=== PATIENT | female | born 1975 | race Caucasian/White ===

== ENCOUNTER → 2025-01-11 11:12 | Outpatient (REF) | payer OTHER, SELFPAY | LOC: WDC 11:12 | PROVIDERS: ATTENDING PHYSICIAN Obstetrics & Gynecology; FAMILY PHYSICIAN Family Medicine | DX: Z12.31 Encounter for screening mammogram for malignant neoplasm of breast (principal) | CPT/HCPCS: 77063; 77067 ==

== ENCOUNTER 2025-07-06 06:33 | Day surgery (SDC) | payer OTHER, SELFPAY | END 2025-07-06 09:38 | disposition home or self-care (01) | LOC: GI 06:33 | PROVIDERS: ATTENDING PHYSICIAN Specialist | DX: Z12.11 Encounter for screening for malignant neoplasm of colon (principal); Z80.0 Family history of malignant neoplasm of digestive organs; K62.1 Rectal polyp | CPT/HCPCS: 45380; 88305 ==